=== PATIENT | female | born 1975 | race Caucasian/White ===

== ENCOUNTER 2017-11-09 22:53 | Emergency (ER) | payer MEDICAID, OTHER ==
[~2017-11-09] VITALS: Ht 172.7 cm; Wt 64.1 kg
[~2017-11-09 22:53] MED LIST: GABA100C4 PO; MELO15; PERC10TA27 PO; SERT100 PO; VALI10TA PO
[2017-11-09 23:13] VITALS: BP 136/69; PULSE 111; RESP 18; TEMP 98.4; O2SAT 97
[2017-11-09 23:28] VITALS: BP 119/82; PULSE 102; RESP 16; TEMP 98.4; O2SAT 98
[2017-11-09] MEDS ORDERED: OXYC30TA PO (23:42)
[2017-11-09] MEDS ORDERED: MORP1TAB25 PO (23:42)
[2017-11-09] MEDS ORDERED: MONT10TA2 PO (23:42)
[2017-11-09] MEDS ORDERED: MOBI15TA PO (23:42)
[2017-11-09] MEDS ORDERED: DIAZ10 PO (23:42)
[2017-11-09] MEDS ORDERED: ZOLO100T PO (23:42)
[2017-11-10] MEDS ORDERED: CLINDAMYCIN INJ 900 MG in SODIUM CHLORIDE 0.9% INJ 100 ML IV ONE (00:45)
[2017-11-10] MEDS ORDERED: KETOROLAC TROMETHAMINE 30 MG/ML (IVP) VIAL IVP ONE (00:45)
[2017-11-10] MEDS ORDERED: SODIUM CHLOR 0.9% 1000 ML INJ 1,000 ML IV ONE (00:45)
[2017-11-10] MEDS ORDERED: ERYTHROMYCIN 0.5% OPTH OINT 3.5 GM TUBO LEFT EYE ONE ×2 (01:00→01:39)
[2017-11-10 01:21] VITALS: BP 102/64; PULSE 102; RESP 16; O2SAT 95
[2017-11-10 01:24] LABS: AUTOMATED NEUTROPHIL # 3.9 TH/MM3 (1.8-7.7); BASOPHIL # 0.1 TH/MM3 (0-0.2); BASOPHIL % 0.8 % (0.0-2.0); EOSINOPHIL # 0.2 TH/MM3 (0-0.4); EOSINOPHIL % 2.5 % (0.0-4.0); HEMATOCRIT 38.5 % (35.0-46.0); HEMOGLOBIN 13.1 GM/DL (11.6-15.3); LYMPH % 31.1 % (9.0-44.0); LYMPHOCYTE # 2.2 TH/MM3 (1.0-4.8); MEAN CELL VOLUME 87.7 FL (80.0-100.0); MEAN CORPUSCULAR HEMOGLOBIN 29.7 PG (27.0-34.0); MEAN CORPUSCULAR HGB CONC 33.9 % (32.0-36.0); MEAN PLATELET VOLUME 9.3 FL (7.0-11.0); MONO % 9.7 % (0.0-8.0); MONOCYTE # 0.7 TH/MM3 (0-0.9); NEUT % 55.9 % (16.0-70.0); PLATELET COUNT 243 TH/MM3 (150-450); RED BLOOD COUNT 4.39 MIL/MM3 (4.00-5.30); RED CELL DISTRIBUTION WIDTH 11.5 % (11.6-17.2); WHITE BLOOD COUNT 7.1 TH/MM3 (4.0-11.0)
--- NOTE | 2017-11-10 01:37 | PD ---
HPI Chief Complaint: Eye Problems/Injury Time Seen by Provider: 00:33 Travel History International Travel<30 days: No Contact w/Intl Traveler<30days: No Traveled to known affect area: No History of Present Illness HPI 42-year-old female presents to the emergency department with rash over the body and area of swelling and redness to the left eyebrow since Friday. Patient's had subjective fever and chills. Patient denies cough congestion sore throat earache chest pain abdominal pain flank pain dysuria frequency urgency hematuria or discharge. Patient notes rash to her face anterior chest and upper back. Patient reportedly exposed to someone who is [facility] and family is concerned that he may have brought scabies or bedbugs to the home environment. Patient states rash was present prior to visit her staying in her home. No history of diabetes. Patient admits to tobacco use denies alcohol or substance use. PFSH Past Medical History Narrative Medical Ovarian cervical cancer hysterectomy and oophorectomy appendectomy; tobacco use substance use; nursing notes reviewed Cancer: Yes (OVARIAN AND CERVICAL) Diminished Hearing: No Immunizations Current: No Tetanus Vaccination: < 5 Years Influenza Vaccination: No ?: Not Menopausal: Yes Ovarian Cysts: Yes Past Surgical History Appendectomy: Yes Gynecologic Surgery: Yes (OVARIAN CYST SURGERIES X4) Hysterectomy: Yes Tonsillectomy: Yes Social History Alcohol Use: No Tobacco Use: Yes (1/2 PPD) Substance Use: Yes (POLY SUBSTANCE ABUSE) Allergies-Medications (Allergen,Severity, Reaction): Coded Allergies: penicillin G (Unverified Allergy, Intermediate, HIVES, 03/25/17) Reported Meds & Prescriptions Reported Meds & Active Scripts Active Reported Singulair (Montelukast Sodium) 10 Mg Tab 10 Mg PO HS Mobic (Meloxicam) 15 Mg Tab 15 Mg PO DAILY Oxycodone (Oxycodone HCl) 30 Mg Tab 30 Mg PO Q6H PRN Morphine ER (Morphine Sulfate) 30 Mg Tab 30 Mg PO BID Valium (Diazepam) 10 Mg Tab 10 Mg PO HS PRN Review of Systems Except as stated in HPI: all other systems reviewed are Neg General / Constitutional: Positive: Fever, Chills Eyes: Positive: Redness, Foreign Body Sensation, Tearing HENT: No: Congestion Cardiovascular: No: Chest Pain or Discomfort Respiratory: No: Shortness of Breath Gastrointestinal: No: Nausea, Vomiting, Abdominal Pain Genitourinary: No: Dysuria, Flank Pain Musculoskeletal: No: Myalgias, Arthralgias Skin: Positive Rash, Positive Itching, Positive Lumps Neurologic: No: Weakness, Dizziness Hematologic/Lymphatic: No: Lymph Node Enlargement Physical Exam Narrative GENERAL: Well-developed well-nourished female no acute distress no respiratory distress SKIN: Warm and dry. Multiple scabs over the face anterior chest and upper back HEAD: Normocephalic. EYES: No scleral icterus. Bilateral injection with tearing drainage. Attention left medial eyebrow large area of soft tissue swelling tenderness fluctuance with central pointing. Extraocular muscles intact. Fluorescein uptake to the right eye no fluorescein uptake of the left eye is no gross hyphema no ulceration no cloudiness of the cornea. NECK: Supple, trachea midline. No JVD or lymphadenopathy. CARDIOVASCULAR: Regular rate and rhythm without murmurs, gallops, or rubs. RESPIRATORY: Breath sounds equal bilaterally. No accessory muscle use. GASTROINTESTINAL: Abdomen soft, non-tender, nondistended. MUSCULOSKELETAL: No cyanosis, or edema. BACK: Nontender without obvious deformity. No CVA tenderness. Data Data Last Documented VS Vital Signs Date Time Temp Pulse Resp B/P (MAP) Pulse Ox O2 Delivery O2 Flow Rate FiO2 11/10/17 02:08 83 16 105/64 (78) 99 Room Air 11/09/17 23:28 98.4 Orders Orders Basic Metabolic Panel (Bmp) (11/10/17 00:33) Complete Blood Count With Diff (11/10/17 00:33) Blood Culture (11/10/17 00:33) Wound Culture And Gram Stain (11/10/17 00:33) Iv Access Insert/Monitor (11/10/17 00:33) Ketorolac Inj (Toradol Inj) (11/10/17 00:45) Clindamycin Inj (Cleocin Inj) (11/10/17 00:45) Sodium Chlor 0.9% 1000 Ml Inj (Ns 1000 M (11/10/17 00:45) Lactic Acid (11/10/17 00:33) Drug Screen, Random Urine (11/10/17 00:33) Urinalysis - C+S If Indicated (11/10/17 00:33) Alcohol (Ethanol) (11/10/17 00:33) Magnesium (Mg) (11/10/17 00:33) Erythromycin 0.5% Opth Oint (Ilotycin 0. (11/10/17 01:00) Erythromycin 0.5% Opth Oint (Ilotycin 0. (11/10/17 01:39) Lidocaine Pf 1% Inj (Xylocaine-Mpf 1% In (11/10/17 01:45) Labs Laboratory Tests Test 11/10/17 00:06 11/10/17 01:00 White Blood Count 7.1 TH/MM3 Red Blood Count 4.39 MIL/MM3 Hemoglobin 13.1 GM/DL Hematocrit 38.5 % Mean Corpuscular Volume 87.7 FL Mean Corpuscular Hemoglobin 29.7 PG Mean Corpuscular Hemoglobin Concent 33.9 % Red Cell Distribution Width 11.5 % Platelet Count 243 TH/MM3 Mean Platelet Volume 9.3 FL Neutrophils (%) (Auto) 55.9 % Lymphocytes (%) (Auto) 31.1 % Monocytes (%) (Auto) 9.7 % Eosinophils (%) (Auto) 2.5 % Basophils (%) (Auto) 0.8 % Neutrophils # (Auto) 3.9 TH/MM3 Lymphocytes # (Auto) 2.2 TH/MM3 Monocytes # (Auto) 0.7 TH/MM3 Eosinophils # (Auto) 0.2 TH/MM3 Basophils # (Auto) 0.1 TH/MM3 CBC Comment DIFF FINAL Differential Comment Blood Urea Nitrogen 10 MG/DL Creatinine 0.68 MG/DL Random Glucose 114 MG/DL Calcium Level 9.0 MG/DL Magnesium Level 2.2 MG/DL Sodium Level 138 MEQ/L Potassium Level 3.2 MEQ/L Chloride Level 101 MEQ/L Carbon Dioxide Level 32.3 MEQ/L Anion Gap 5 MEQ/L Estimat Glomerular Filtration Rate 95 ML/MIN Ethyl Alcohol Level LESS THAN 3 MG/DL Urine Collection Type CLEAN CATCH Urine Color YELLOW Urine Turbidity CLEAR Urine pH 5.5 Urine Specific [place] 1.010 Urine Protein NEG mg/dL Urine Glucose (UA) NEG mg/dL Urine Ketones NEG mg/dL Urine Occult Blood NEG Urine Nitrite NEG Urine Bilirubin NEG Urine Urobilinogen 0.2 MG/DL Urine Leukocyte Esterase NEG Urine WBC 0-2 /hpf Urine Squamous Epithelial Cells 0-5 /hpf Urine Bacteria OCC /hpf Urine Mucus OCC /lpf Microscopic Urinalysis Comment CULT NOT INDICATED Lactic Acid Level 0.7 mmol/L Urine Opiates Screen NEG Urine Barbiturates Screen NEG Urine Amphetamines Screen POS Urine Benzodiazepines Screen POS Urine Cocaine Screen NEG Urine Cannabinoids Screen NEG MDM Medical Decision Making Medical Screen Exam Complete: Yes Emergency Medical Condition: Yes Medical Record Reviewed: Yes Interpretation(s) CBC & BMP Diagram 11/10/17 00:06 Calcium Level 9.0, Magnesium Level 2.2 Vital Signs Date Time Temp Pulse Resp B/P (MAP) Pulse Ox O2 Delivery O2 Flow Rate FiO2 11/10/17 02:08 83 16 105/64 (78) 99 Room Air 11/10/17 01:21 102 16 102/64 (77) 95 Room Air 11/09/17 23:33 16 11/09/17 23:28 98.4 102 16 119/82 (94) 98 11/09/17 23:13 98.4 111 18 136/69 (91) 97 lactic acid: 0.7, not elevated Urine drug screen: Amphetamine benzodiazepine Differential Diagnosis Cellulitis, abscess, contact dermatitis, polysubstance ingestion, sepsis, conjunctivitis Narrative Course IV access obtained specimens collected and sent for resulting Normal total white cell count was normal automated differential lactic acid is not elevated at 0.7 patient is afebrile patient does have mild tachycardia upon arrival to the emergency department however patient has amphetamines noted on urine drug screen Patient is status post incision and drainage of the left eyebrow after informed verbal consent. Packing in place. Patient tolerated procedure well. Tetanus status is current. Fluorescein staining mild uptake at the 11 o'clock position of fluoroscopy seen without Joanna sign foreign body or ulcer. Patient has received IV clindamycin and Toradol clinically improved and stable for outpatient management patient does not meet SIRS or sepsis criteria and at this time and is stable for outpatient management at this time patient is encouraged to return in 1-2 days for packing removal or before if fever or any concerns. Procedures Procedure Narrative After the risks and benefits were discussed the following procedure was performed: INCISION AND DRAINAGE OF ABSCESS: The area was prepped and was sterilely draped. A subcutaneous wheal of 1 % Xylocaine with a total number 3 mL was used to anesthetize the area. The area was properly anesthetized. A number 11 scalpel was used to make a 1-cm incision across the area of the abscess. Cultures were obtained. The abscess was drained an irrigated with normal saline. Quarter inch iodoform packing was placed in the wound. Sterile dressing applied. Patient advised to have packing removed in two days. 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 Return to the emergency department for any concerns or change in condition Take acetaminophen/Tylenol every 4 hours as needed for fever 100.4F or greater May use ibuprofen/Advil/Motrin every 6-8 hours as needed for fever 100.4F or greater for pain Associates inflammation Follow-up with your primary care provider Med/Other Pt SpecificInfo: Prescription(s) given Scripts Sulfamethoxazole-Trimethoprim (Bactrim DS) 800-160 Mg Tab 1 TAB PO BID for Infection, #14 TAB 0 Refills Prov: Oanh Kirkland MD 11/10/17 Clindamycin (Clindamycin) 150 Mg Cap 300 MG PO Q6H for Infection for 7 Days, #56 CAP 0 Refills Prov: Oanh Kirkland MD 11/10/17 Erythromycin Opth Oint (Erythromycin Opth Oint) 5 Mg/Gm Oint 1 APPLIC EACH EYE QID for Infection, #1 TUBE 0 Refills Prov: Oanh Kirkland MD 11/10/17 Disposition: 01 DISCHARGE HOME Condition: Stable Oanh Kirkland MD Nov 10, 2017 01:36
[2017-11-10 01:38] LABS: CHLORIDE 101 MEQ/L (98-107); SODIUM (NA) 138 MEQ/L (136-145)
[2017-11-10 01:38] LABS: BILIRUBIN, URINE NEG (NEG); BLOOD, URINE NEG (NEG); GLUCOSE,URINE NEG (NEG); KETONE, URINE NEG (NEG); NITRITE,URINE NEG (NEG); PH, URINE 5.5 (5.0-8.5); URINE COLOR YELLOW (YELLW/STRAW); URINE LEUKOCYTE ESTERASE NEG (NEG)
[2017-11-10 01:41] LABS: BICARBONATE 32.3 MEQ/L (21.0-32.0); BLOOD UREA NITROGEN 10 MG/DL (7-18); GLUCOSE,RANDOM 114 MG/DL (74-106); MAGNESIUM 2.2 MG/DL (1.5-2.5)
[2017-11-10 01:44] LABS: CREATININE 0.68 MG/DL (0.50-1.00); GLOMERULAR FILTRATION RATE 95 ML/MIN (>89)
[2017-11-10] MEDS ORDERED: LIDOCAINE HCL 1% PF 10 ML VIAL INFIL ONE (01:45)
[2017-11-10 02:01] LABS: BACTERIA, URINE OCC /hpf; MUCUS URINE OCC /lpf (OCC); SQUAMOUS EPITHELIAL CELL URINE 0-5 /hpf (0-5); WBC, URINE 0-2 /hpf (0-5)
[2017-11-10 02:08] VITALS: BP 105/64; PULSE 83; RESP 16; O2SAT 99
[2017-11-10] MEDS ORDERED: CLIN150C14 PO (02:57)
[2017-11-10] MEDS ORDERED: BACT800T5 PO (02:57)
[2017-11-10] MEDS ORDERED: ERYTOIN10 EACH EYE (02:57)
[2017-11-10] MEDS ORDERED: ERYTHROMYCIN 0.5% OPTH OINT 3.5 GM TUBO EACH EYE ONE (03:15)
[2017-11-10 03:25] VITALS: BP 106/62
== END 2017-11-10 03:28 | disposition home or self-care (01) ==
LOC: PHED 22:53
DX: L02.01 Cutaneous abscess of face (principal); S05.01XA Injury of conjunctiva and corneal abrasion without foreign body, right eye, initial encounter; H10.9 Unspecified conjunctivitis; A49.02 Methicillin resistant Staphylococcus aureus infection, unspecified site; F15.10 Other stimulant abuse, uncomplicated; F19.10 Other psychoactive substance abuse, uncomplicated; F17.200 Nicotine dependence, unspecified, uncomplicated; X58.XXXA Exposure to other specified factors, initial encounter; Z79.899 Other long term (current) drug therapy
CPT/HCPCS: 10061; 80048; 80307; 81001; 83605; 83735; 85025; 86403; 87040; 87070; 87186; 96361; 96365; 96375; 99284; J1885; J7030